=== PATIENT | female | born 2000 | race Caucasian/White ===

== ENCOUNTER → 2022-05-10 02:13 | Outpatient (CLI) | payer SELFPAY | PROVIDERS: Visit Provider Advanced Practice Midwife ==

== ENCOUNTER 2022-08-24 12:28 | Emergency (ER) | payer SELFPAY ==
[2022-08-24 12:31] VITALS: BP 154/92; PULSE 96; RESP 18; TEMP 36.7; O2SAT 99
--- NOTE | 2022-08-24 13:45 | DI.RAD_ITS ---
Exam(s) XR FOOT RT COMPLETE EXAM: XR FOOT RT COMPLETE CLINICAL HISTORY: pain/injury. TECHNIQUE: 2D digital imaging was performed. COMPARISON: No exams were available for comparison FINDINGS: 3 views Hallux valgus noted-moderate. No evidence of fracture or diastasis of the Lisfranc joint. Bone dens ity normal. No osseous lesions. No erosions. No radiopaque foreign body. IMPRESSION: No fractures. Hallux valgus noted. DATA REPOSITORY: RADIATION DOSE DELIVERED:
--- NOTE | 2022-08-24 13:53 | W.ED.GENAD ---
Discharge Plan Disposition Patient Disposition: HOME Condition: Stable Discharge Details Chief Complaint: Orthopedic Clinical Impression: Foot pain, right Primary Care Provider: None,None ED Provider: Dread Mehta Home Meds and New Rx's Prescriptions: No Action No Known Home Meds Discharge Instructions Additional Instructions: Wear boot as needed, advance activity as tolerated. Rest, elevate, cool compresses every 2 hours for 20 minutes. [id number] Tylenol and/or Motrin as directed for discomfort. Please watch for new or worsening symptoms and return to the ER for any concerns. Lastly, I am giving you a referral to orthopedics, please follow-up if you are not improving with conservative measures over the next 5-7 days. Referrals: Young Miller MD [ [facility] STAFF PHYSICIAN] - Medical Decision Making 22-year-old female reports nontraumatic right foot pain, does report working out, upright at work with a physical job, repetitive motion, etc. Clinically she appears well, nontoxic. Reports that after taking it easy for a day or 2 her pain is much better but when she gets back to normal activity the pain gets back to where it has been previously. Examination is unremarkable for any obvious trauma or deformity. Will obtain x-ray and reassess. X-ray unremarkable. Discussed findings with patient. Will place into a short walking boot and provide orthopedic referral for follow-up. Understands that there could be an occult stress fracture which could require outpatient imaging if symptoms are to persist. Otherwise we discussed the importance of resting, elevating, cool compresses every 2 hours for 20 minutes. Patient states that she took Tylenol once in the past 2 weeks for her discomfort as she does not like taking medicine. We discussed the importance of taking an anti-inflammatory Standard discharge and return precautions were provided. Patient understands, is agreeable to this plan, and has no additional questions or concerns upon discharge. This documentation was generated using [employer] dictation system, please disregard any oddities of phrase or misspellings. Imaging Data Radiologic Study: Attestation: I personally reviewed and interpreted this imaging study as follows: Imaging: X-Ray Radiologist's impression: Exam(s) XR FOOT RT COMPLETE EXAM: XR FOOT RT COMPLETE CLINICAL HISTORY: pain/injury. TECHNIQUE: 2D digital imaging was performed. COMPARISON: No exams were available for comparison FINDINGS: 3 views Hallux valgus noted-moderate. No evidence of fracture or diastasis of the Lisfranc joint. Bone density normal. No osseous lesions. No erosions. No radiopaque foreign body. IMPRESSION: No fractures. Hallux valgus noted. HPI General Mode of arrival: ambulatory. Date/Time Provider Initiated Documentation: 08/24/22 12:53. Limitations to Documentation: no limitations. Information obtained by: patient. History of Present Illness 22 year old F presents to the emergency department with the chief complaint of R foot pain, described as moderate, with intensity rated at 4. Quality is described as aching, and is localized to the right and lower extremity. Patient reports no radiation. Patient started experiencing this week(s) (2) and it has been intermittent. Immobilization improves symptom(s), Movement worsens symptoms . Patient notes no other symptoms.. Patient did receive the following treatments prior to arrival, none Related Data Home Medications Medication Instructions Recorded Confirmed Unknown [No Known Home Meds] 08/24/22 08/24/22 Allergies Allergy/AdvReac Type Severity Reaction Status Date / Time No Known Allergies Allergy Unverified 08/24/22 12:37 General Stated Complaint: Orthopedic EPI: 4 Review of Systems Constitutional Constitutional: Denies fever(s) and Denies weakness Musculoskeletal Musculoskeletal: Denies deformity, Denies arthralgias, Denies numbness, Reports stiffness and Denies tingling Integumentary/Breasts Skin/Breast: Denies rash Neurologic Neurologic: Denies numbness, Denies tingling and Denies weakness PFSH All Active Problems (Updated 08/24/22 @ 14:38 by RADHA Nevarez) Foot pain, right (Acute) Social History Smoking risk assessment performed?: No Do you feel safe at home: Yes Do you feel safe in your relationship?: Yes Exam Const General: cooperative, healthy appearing, comfortable and no acute distress Orientation: alert and awake [facility] Head: normal to inspection, normocephalic and atraumatic Mouth: moist mucous membranes Eyes Conjunctivae: conjunctivae normal Neck Neck: normal visual inspection, trachea midline and supple Resp Effort & Inspection: normal respiratory effort and able to speak in complete sentences Cardio Rate: regular rate Rhythm: regular rhythm Skin General skin exam: no rashes or lesions noted Neuro General: patient alert, patient awake, moves all extremities and no focal motor deficits Cognition: normal cognition Speech: speech normal Gait: antalgic (Slightly) Motor: muscle tone normal throughout Sensory Exam: no sensory deficits noted Extrem General: normal to inspection, full ROM, capillary refill normal, no pedal edema and no calf tenderness Ankle/foot/toe images: 1. Diffuse mild discomfort without any obvious deformity, swelling, erythema, ecchymosis. No deformity. Neuro, vascular, tendon intact. Normal pedal pulse and capillary refill Psych Appearance: grossly normal Mental Status: mental status grossly normal Course Vital Signs Vital signs: Vital Signs Temperature 36.7 C 08/24/22 12:31 Pulse 96 H 08/24/22 12:31 Respiratory Rate 18 08/24/22 12:31 Blood Pressure 154/92 H 08/24/22 12:31 Pulse Oximetry 99 08/24/22 12:31 Temperature 36.7 C 08/24/22 12:31 Temperature Source Oral 08/24/22 12:31 Pulse 96 H 08/24/22 12:31 Respiratory Rate 18 08/24/22 12:31 Respiratory Effort Non-Labored 08/24/22 13:39 Blood Pressure 154/92 H 08/24/22 12:31 Blood Pressure Position Sitting 08/24/22 12:31 Pulse Oximetry 99 08/24/22 12:31 Oxygen Delivery Method Room Air 08/24/22 12:31 Oxygen Flow Rate 0 08/24/22 12:31 Pain Level 3 08/24/22 12:31 Comment 08/24/22 12:31 Lab/Test Results Lab/Test Results: POC- Test(urine) Negative
== END 2022-08-24 14:49 | disposition home or self-care (01) ==
PROVIDERS: Emergency Provider Physician Assistant
DX: M79.671 Pain in right foot (principal); M79.89 Other specified soft tissue disorders; R58 Hemorrhage, not elsewhere classified; Z32.02 Encounter for pregnancy test, result negative
CPT/HCPCS: 81025; 99283; 73630; 99282